=== PATIENT | male | born 1965 | race Asian ===

== ENCOUNTER 2017-12-13 13:33 | Outpatient (CLI) | payer OTHER ==
[~2017-12-13 13:33] MED LIST: GADOBUTROL 7.5 MMOL/7.5 ML VIAL ONE
[2017-12-13] MEDS ORDERED: GADOBUTROL 7.5 MMOL/7.5 ML VIAL IVP ONE (14:38)
--- NOTE | 2017-12-15 07:57 | MRI Report ---
EXAM: MRI CERVICAL SPINE WITHOUT AND WITH CONTRAST EXAM DATE: 12/13/2017 03:00 PM. CLINICAL HISTORY: Left-sided upper and lower extremity numbness and tingling. COMPARISON: 01/15/2008. TECHNIQUE: Multiplanar, multisequence T1-weighted and fluid-sensitive sequences of the cervical spine before and after administration of intravenous contrast. Other: None. IV contrast: 7.5 mL Gadavist. FINDINGS: Neurologic Structures: The visualized posterior fossa structures are unremarkable. No signal abnormal ity in the visualized spinal cord. Alignment: No scoliosis or spondylolisthesis. Bone Marrow: No gross fractures or bone lesions. No marrow edema or abnormal enhancement. Interspace Levels/Facets: All visualized intervertebral disks are desiccated. C1-c2: Unremarkable. C2-C3: Unremarkable. C3-C4: A mild posterior disk/osteophyte complex results in minimal spinal canal and mild bilateral fo raminal narrowing as before. C4-C5: A mild posterior disk/osteophyte complex results in moderate spinal canal and bilateral forami nal narrowing. The spinal canal narrowing has worsened and there is indentation on the anterior cord. C5-C6: A mild posterior disk/osteophyte complex, ligamentum flavum hypertrophy, and mild bilateral fa cet osteoarthritis cause moderate spinal canal and moderate bilateral foraminal narrowing. The spinal canal narrowing is worsened. C6-C7: A posterior disk/osteophyte complex results in mild spinal canal and moderate bilateral forami nal narrowing as before. C7-T1: Unremarkable. Spinal Canal: No enhancing lesions within the spinal canal. No epidural abscess. Musculature: Normal. No edema, enhancement, or fatty atrophy. Other: The paravertebral and prevertebral soft tissues are normal. IMPRESSION: 1. Mild bilateral foraminal narrowing at C3-C4 due to disk/osteophyte complex. 2. Moderate spinal canal and bilateral foraminal narrowing at C4-C5 due to disk/osteophyte complex. 3. Moderate spinal canal and bilateral foraminal narrowing at C5-C6 due to disk and posterior element degenerative changes. 4. Mild spinal canal and moderate bilateral foraminal narrowing at C6-C7 due to a disk/osteophyte com plex. [facility] Referring Provider Line: [phone] SITE ID: [id number]
== END 2017-12-13 13:34 | disposition home or self-care (01) ==
LOC: DI 13:33
PROVIDERS: ATTEND Nurse Practitioner Adult Health
DX: M47.892 Other spondylosis, cervical region (principal); M50.31 Other cervical disc degeneration, high cervical region
CPT/HCPCS: 72156; A9585

== ENCOUNTER 2018-01-17 14:43 | Outpatient (CLI) | payer OTHER ==
--- NOTE | 2018-01-18 04:01 | MRI Report ---
EXAM: MRI THORACIC SPINE WITHOUT CONTRAST EXAM DATE: 01/17/2018 04:39 PM. CLINICAL HISTORY: Low back pain, thoracic spine pain. COMPARISONS: None. TECHNIQUE: Multiplanar, multisequence T1-weighted and fluid-sensitive sequences of the thoracic spine from C7 to L1 without contrast. Other: None. FINDINGS: Spinal Cord: No signal abnormality in the visualized spinal cord. Alignment: There is no spondylolisthesis. Bone Marrow: No gross fractures or bone lesion. No bone marrow edema. Disk Levels/Facets: C7-T1: Unremarkable. T1-T2: Unremarkable. T2-T3: Unremarkable. T3-T4: Unremarkable. T4-T5: Unremarkable. T5-T6: Unremarkable. T6-T7: Unremarkable. T7-T8: Unremarkable. T8-T9: Unremarkable. T9-T10: Unremarkable. T10-T11: Unremarkable. T11-T12: Unremarkable. T12-L1: Unremarkable. Musculature: Normal. No edema or fatty atrophy. Other: The visualized lungs, mediastinum, and abdominal cavity are unremarkable. IMPRESSION: Unremarkable thoracic spine MRI. [facility] Referring Provider Line: [phone] SITE ID: [id number]
--- NOTE | 2018-01-18 04:04 | MRI Report ---
EXAM: MRI LUMBAR SPINE WITHOUT CONTRAST EXAM DATE: 01/17/2018 01:15 PM. CLINICAL HISTORY: Low back pain, thoracic spine pain. COMPARISON: None. TECHNIQUE: Multiplanar, multisequence T1-weighted and fluid-sensitive sequences of the lumbar spine f rom T12 to S1 without contrast. Other: None. FINDINGS: Spinal Cord: The conus terminates at L1-L2. The conus medullaris and cauda equina are unremarkable. Alignment: There is no spondylolisthesis. Bone Marrow: Five [id number] lumbar vertebral bodies are assumed. Small osseous hemangiomas are present in the L3 and L4 vertebral bodies, benign findings. No abnormal bone marrow edema is identifi ed. Disk Levels/Facets: T12-L1: Unremarkable. L1-L2: Unremarkable. L2-L3: Unremarkable. L3-L4: A small central protrusion and annular fissure is present with ligamentum flavum infolding res ulting in mild spinal canal stenosis. The foramina are patent. L4-L5: Unremarkable. L5-S1: Unremarkable. Musculature: Normal. No edema or fatty atrophy. Other: The partially visualized retroperitoneum is unremarkable. IMPRESSION: 1. Normal conus medullaris and cauda equina. 2. Mild protrusion and annular fissure with ligamentum flavum infolding result in mild spinal canal s tenosis at L3-L4. 3. No foraminal narrowing or bone marrow edema is identified. Comment: The following findings are so common in adults without low back pain that while we report th eir presence, they must be interpreted with caution and in the context of the clinical situation. (Re rome De La Torrek et al, Spine 2001) Prevalence of findings in patients without low back pain: Disk degeneration (any evidence): 92% Disk desiccation/T2 signal loss: 83% Disk height loss: 56% Disk bulge: 64% Disk protrusion: 32% Annular tear/high intensity zone: 38% [facility] Referring Provider Line: [phone] SITE ID: [id number]
== END 2018-01-17 14:44 | disposition home or self-care (01) ==
LOC: DI 14:43
PROVIDERS: ATTEND Nurse Practitioner Adult Health
DX: M51.26 Other intervertebral disc displacement, lumbar region (principal)
CPT/HCPCS: 72146; 72148

== ENCOUNTER 2019-02-18 08:35 | Outpatient (CLI) | payer OTHER ==
[2019-02-18] MEDS ORDERED: REGADENOSON 0.4 MG/5 ML SYRINGE IVP ONE ×2 (09:48→11:06)
[2019-02-18] MEDS ORDERED: AMINOPHYLLINE 250 MG/10 ML VIAL ONE (10:29)
--- NOTE | 2019-02-18 12:01 | CARDIAC PROCEDURE NOTE ---
DATE OF SERVICE: 02/18/2019 Physician: Dedra Olvera MD, [facility] INDICATIONS: Chest pain. CARDIAC RISK FACTORS: Male gender, hypertension, family history of heart disease. PROCEDURE: After signing informed consent, the patient underwent a Lexiscan pharmaceutical stress test with nuclear Myocardial perfusion imaging. RESTING HEART RATE: 70. PEAK HEART RATE: 96. RESTING BLOOD PRESSURE: 132/92. PEAK BLOOD PRESSURE: 158/75. Lexiscan was infused per protocol. The patient developed mild "heaviness of breathing." He did not have his typical chest pain. Oxygen saturation was 99% on room air at this point. His symptom subsided spontaneously after 2-3 minutes. RESTING EKG: Normal sinus rhythm, biphasic T-wave in lead III only. EKG AT PEAK: No new ST or T-wave changes by EKG criteria on this pharmaceutical stress test. SUMMARY 1. No ischemic changes by EKG criteria on this pharmaceutical stress test. 2. Nuclear images reported separately. TD: 02/18/2019 11:56 GEOVANNI
--- NOTE | 2019-02-18 16:09 | Nuclear Medicine Report ---
Reason: CHEST PAIN Procedure Date: 02/18/2019 Accession Number: [id number] / [id number] Procedure: NM - Myocardial Perfusion STR/RST CPT Code: FULL RESULT: EXAM: SINGLE-ISOTOPE PHARMACOLOGICAL STRESS TEST WITH REGADENOSON. SINGLE-ISOTOPE AND ONE-DAY REST/STRESS MYOCARDIAL PERFUSION SCANS WITH TOMOGRAPHIC IMAGING, QUANTITATIVE ANALYSIS, WALL MOTION ANALYSIS AND CALCULATION OF EJECTION FRACTION. EXAM DATE: 02/18/2019 03:27 PM. CLINICAL HISTORY: CHEST PAIN. COMPARISON: None available. TECHNIQUE: After the intravenous administration of 10.6 mCi of Tc-99m sestamibi, a rest myocardial perfusion scan was done with tomography. Motion correction was applied when appropriate. After an appropriate delay, pharmacological stress was performed with the infusion of 0.4 mg regadenoson per protocol. According to protocol, 44.1 mCi of Tc-99m sestamibi was injected for stress myocardial perfusion scan. Motion correction was applied when appropriate. Gated tomographic images were obtained for wall motion analysis and computation of left ventricular ejection fraction. FINDINGS: On visual analysis, no fixed or reversible perfusion defects are evident. Computer analysis. Summed stress score 7 Summed rest score 3 Summed difference score 4 Wall motion analysis demonstrates no focal wall motion abnormality. The left ventricular end-diastolic volume is 63 cc. The left ventricular end-systolic volume is 16 cc. The left ventricular ejection fraction is calculated to be 75%. IMPRESSION: 1. On visual analysis, no convincing significant fixed or reversible perfusion defects. 2. Left ventricular ejection fraction of 75%. 3. Normal segmental and global wall motion. 4. Normal left ventricular cavity size, no change with stress. 5. Based on computer analysis, mildly abnormal study with mild ischemia. Please correlate findings with stress ECG tracings and procedure notes. [facility]
== END 2019-02-18 08:36 | disposition home or self-care (01) ==
LOC: DI 08:35
PROVIDERS: ATTEND Nurse Practitioner Adult Health
DX: R07.9 Chest pain, unspecified (principal); R20.0 Anesthesia of skin; I10 Essential (primary) hypertension; M54.5 Low back pain; M54.6 Pain in thoracic spine; Z82.49 Family history of ischemic heart disease and other diseases of the circulatory system
CPT/HCPCS: 78452; 93016; 93017; 93018; A9500; J2785

== ENCOUNTER 2019-03-03 14:36 | Outpatient (CLI) | payer OTHER ==
[2019-03-03] MEDS ORDERED: IOVERSOL 320 100 ML VIAL IVP ONE (14:58)
--- NOTE | 2019-03-04 08:24 | Ultrasound Report ---
Reason: RT UPPER QAUDRANT PAIN Procedure Date: 03/03/2019 Accession Number: [id number] / [id number] Procedure: US - Abdomen Complete CPT Code: FULL RESULT: EXAM: ABDOMEN ULTRASOUND EXAM DATE: 03/03/2019 03:30 PM. CLINICAL HISTORY: Right upper quadrant pain. COMPARISON: IVP 03/03/2019 3:53 PM, 03/03/2019 3:42 PM. TECHNIQUE: Real-time scanning was performed with static images obtained. FINDINGS: Liver: Liver parenchyma is heterogeneous and mildly hyperechoic. No discrete liver masses or intrahepatic bile duct dilation. However, evaluation for masses is limited secondary to the echogenicity. 16.2 cm. Main portal vein flow: Hepatopetal. Gallbladder: Normal. No stones, wall thickening, or sonographic Palomo's sign. Biliary System: Common bile duct measures 3.2 mm. No intrahepatic or extrahepatic ductal dilatation. Pancreas: Not well-seen due to bowel gas and fatty liver. Kidneys: Right: 9.4 cm longitudinally. No hydronephrosis or contour deforming mass. Mid right renal echogenic focus measuring 0.8 cm most compatible with a stone. Left: 10.2 cm longitudinally. No contour-deforming mass, stones, or hydronephrosis. 1.1 x 0.8 x 1.3 cm simple mid left renal cyst. Spleen: 7.6 cm. Normal in size and echotexture. Aorta and Inferior Vena Cava: Unremarkable. Other: None. IMPRESSION: 1. Mildly echogenic fatty liver. No mass or intrahepatic bile duct dilation. 2. Normal gallbladder and common bile duct. 3. Pancreas largely obscured by bowel gas. 4. 0.8 cm nonobstructing mid right renal stone. No hydronephrosis. 1.3 cm simple mid left renal cyst. [facility]
== END 2019-03-03 14:37 | disposition home or self-care (01) ==
LOC: DI 14:36
PROVIDERS: ATTEND Nurse Practitioner Adult Health
DX: K76.0 Fatty (change of) liver, not elsewhere classified (principal); N20.0 Calculus of kidney; N28.1 Cyst of kidney, acquired
CPT/HCPCS: 76700

== ENCOUNTER 2019-03-03 14:38 | Outpatient (CLI) | payer OTHER ==
[~2019-03-03 14:38] MED LIST changes: -GADOBUTROL 7.5 MMOL/7.5 ML VIAL ONE; +IOVERSOL 320 100 ML VIAL IVP ONE
[2019-03-03] MEDS ORDERED: IOVERSOL 320 100 ML VIAL IVP ONE (16:02)
--- NOTE | 2019-03-04 05:12 | CT Report ---
Reason: CALCULUS OF KIDNEY Procedure Date: 03/03/2019 Accession Number: [id number] / [id number] Procedure: CT - IVP CPT Code: FULL RESULT: EXAM: CT ABDOMEN AND PELVIS WITHOUT AND WITH CONTRAST (CT IVP) EXAM DATE: 03/03/2019 04:19 PM. CLINICAL HISTORY: Calculus of kidney. COMPARISONS: 03/03/2019 2:43 PM. TECHNIQUE: Routine helical imaging was performed through the kidneys, ureters and bladder in the precontrast, postcontrast and delayed phase. IV Contrast: Yes. Reconstructions: Coronal and sagittal. In accordance with CT protocol optimization, one or more of the following dose reduction techniques were utilized for this exam: automated exposure control, adjustment of mA and/or KV based on patient size, or use of iterative reconstructive technique. FINDINGS: Lung Bases: Unremarkable. Right Kidney/Ureter: Nonobstructing 4 x 4 mm right renal stone. No ureteral stones, hydronephrosis, or solid-appearing masses. Left Kidney/Ureter: No stones, hydronephrosis, or solid-appearing masses. Couple of small cysts measuring up to 1.5 cm. Other Abdominal Organs: The liver, spleen, pancreas, gallbladder, and adrenal glands are unremarkable. Peritoneal Cavity/Bowel: No free fluid, free air or adenopathy. No masses. Bowel loops appear unremarkable with note of mild colonic diverticulosis. Pelvic Organs: Moderately enlarged prostate with median lobe hypertrophy indenting into the inferior aspect of the bladder. The bladder otherwise appears unremarkable. Vasculature: Normal. Bones: No significant abnormality. Other: None. IMPRESSION: 1. Small, 4 mm nonobstructing right renal stone. 2. No ureteral stone or evidence of obstructive uropathy. 3. No solid-appearing renal or urothelial lesion seen. 4. Enlarged prostate with median lobe hypertrophy indenting into the inferior aspect of the bladder. 5. Mild colonic diverticulosis. [facility]
== END 2019-03-03 14:39 | disposition home or self-care (01) ==
LOC: DI 14:38
PROVIDERS: ATTEND Nurse Practitioner Adult Health
DX: N20.0 Calculus of kidney (principal); N40.0 Benign prostatic hyperplasia without lower urinary tract symptoms; K57.30 Diverticulosis of large intestine without perforation or abscess without bleeding; K76.0 Fatty (change of) liver, not elsewhere classified; N28.1 Cyst of kidney, acquired
CPT/HCPCS: 74178; 76700; Q9967

== ENCOUNTER 2019-11-28 13:38 | Emergency (ER) | payer OTHER ==
[2019-11-28] MEDS ORDERED: HYDROmorphone 1 MG/ML CARPUJECT IM STA (13:52)
[2019-11-28] MEDS ORDERED: ONDANSETRON ODT 4 MG TABLET TL STA (13:52)
[2019-11-28] MEDS ORDERED: HYDROmorphone 1 MG/ML CARPUJECT IVP STA (13:53)
--- NOTE | 2019-11-28 13:54 | ED Physician Documentation ---
PD HPI UPPER EXT INJURY - Stated complaint Stated Complaint: LT ARM INJURY - Chief complaint Chief Complaint: Trauma Ext - History obtained from History obtained from: Patient (54-year-old gentleman fell off a ladder while working at home today and is isolated left wrist injury. No head or neck injury. No loss of consciousness. Pain is severe in the left wrist.) Review of Systems Ten Systems: 10 systems reviewed and negative Constitutional: denies: Fever, Chills GI: denies: Abdominal Pain, Nausea, Vomiting PD PAST MEDICAL HISTORY - Past Medical History Cardiovascular: None Respiratory: None Endocrine/Autoimmune: None Psych: Post traumatic stress disorder Musculoskeletal: None - Present Medications Home Medications: Ambulatory Orders Medication Instructions Recorded Confirmed Oxycodone HCl/Acetaminophen 1 - 2 each PO Q6H PRN #20 tablet 11/28/19 [Percocet 5-325 mg Tablet] - Allergies Allergies/Adverse Reactions: Allergies Allergy/AdvReac Type Severity Reaction Status Date / Time No Known Drug Allergies Allergy Verified 11/28/19 13:46 PD ED PE NORMAL - Vitals Vital signs reviewed: Yes - General General: Alert and oriented X 3, Other (He appears uncomfortable, gait is normal) - HEENT HEENT: PERRL, EOMI - Neck Neck: Supple, no meningeal sign, No bony TTP - Cardiac Cardiac: RRR, No murmur - Respiratory Respiratory: No respiratory distress, Clear bilaterally - Abdomen Abdomen: Non tender - Back Back: No CVA TTP, No spinal TTP - Derm Derm: Normal color, Warm and dry - Extremities Extremities: Other (There is an obvious dinner fork type deformity of the left wrist with normal neurovascular function distally, humerus and elbow are nontender.) - Neuro Neuro: Alert and oriented X 3, Normal speech Results - Vitals Vitals: Vital Signs - 24 hr 11/28/19 11/28/19 11/28/19 13:46 14:24 14:31 Temperature 36.8 C Heart Rate 117 H 110 H 107 H Respiratory 20 23 16 Rate Blood Pressure 169/92 H 162/104 H 145/101 H O2 Saturation 98 98 100 11/28/19 11/28/19 11/28/19 14:37 14:40 14:43 Temperature Heart Rate 101 H 101 H 70 Respiratory 17 20 16 Rate Blood Pressure 151/94 H 151/97 H O2 Saturation 100 99 Oxygen O2 Source Room air Procedures - Splint (location) LUE Splint applied by: Physician, Tech Type of splint: Fiberglass, Long arm, Sugar tong Other: Patient tolerated well, No complications, Neurovascular intact, Sling provided - Reduction Body part reduced: Left, Forearm Fracture or dislocation: Fracture dislocation Anesthesia: Conscious sedation Reduction aftercare: Xray confirms reduction (better, not perfect, but good enough pending surgery), Alignment improved, Splint applied, Sling, Patient tolerated well - Procedural sedation Sedation prep: Informed consent, AHA 1 - healthy, IV O2 monitor, ET CO2 monitor, RT present Sedation medications: propofol (100mg then 50mg IVP, total 150mg) Patient status during sedation: Responds to tactile, Vitals remained stable, Maintained airway Sedation recovery: Recovered uneventfully, Slow recovery Time in sedation (Minutes): 10 PD MEDICAL DECISION MAKING - ED course ED course: Case discussed by phone with Dr. Morrison at approximately 2:10 PM, recommends close reduction and splinting with sedation and he will follow-up in the clinic tomorrow for likely OR date on Friday. Departure - Departure Disposition: 01 Home, Self Care Clinical Impression: Forearm fractures, both bones, closed Qualifiers: Encounter type: initial encounter Laterality: left Qualified Code(s): S52.92XA - Unspecified fracture of left forearm, initial encounter for closed fracture Condition: Good Record reviewed to determine appropriate education?: Yes Instructions: ED Fx Forearm Radius Ulna Redu Requ Follow-Up: Kaden Morrison MD [Provider Admit Priv/Credential] - Tomorrow Prescriptions: Oxycodone HCl/Acetaminophen [Percocet 5-325 mg Tablet] 1 - 2 each PO Q6H PRN #20 tablet PRN Reason: pain Comments: Dr. Morrison's office should be following up by calling you tomorrow, call them if you have not heard from them by mid afternoon. The plan he told me was to slide you in the clinic tomorrow for a preop visit and then likely surgery on Friday. Forms: Activity restrictions
[2019-11-28] MEDS ORDERED: PROPOFOL 200 MG/20 ML VIAL IVP STA ×2 (14:13→14:38)
[2019-11-28] MEDS ORDERED: KETOROLAC 30 MG/ML VIAL IVP STA (14:50)
--- NOTE | 2019-11-28 14:51 | XRAY Report ---
Reason: wrist inj Procedure Date: 11/28/2019 Accession Number: [id number] / [id number] Procedure: XR - Wrist 3 View LT CPT Code: Final Report FULL RESULT: EXAM: LEFT WRIST RADIOGRAPHY EXAM DATE: 11/28/2019 02:07 PM. CLINICAL HISTORY: Fall off ladder. Wrist pain. COMPARISON: None. TECHNIQUE: 3 views. FINDINGS: Bones: Completely displaced comminuted distal third shaft left radius fracture with comminution with a small segmental fragment. There is lateral displacement of the distal fracture fragment and complete volar displacement of the distal fracture fragment with overlap extending over approximately 2.8 cm. There is mild lateral angulation. Completely displaced distal shaft left ulnar fracture is seen with dorsal and radial displacement of the distal fracture fragment and overlap of the fragments approximately 1.8 cm. There is lateral angulation. Joints: No dislocation of the left wrist. Soft Tissues: Soft tissue swelling. IMPRESSION: 1. Completely displaced distal left radius and ulna fractures. [facility]
--- NOTE | 2019-11-28 15:25 | XRAY Report ---
Reason: post reduction Procedure Date: 11/28/2019 Accession Number: [id number] / [id number] Procedure: XR - Forearm RT CPT Code: Final Report FULL RESULT: EXAM: RIGHT FOREARM RADIOGRAPHY EXAM DATE: 11/28/2019 02:52 PM. CLINICAL HISTORY: Status post reduction of distal radial and ulnar fractures. COMPARISON: WRIST 3 VIEW LT 11/28/2019 1:50 PM. TECHNIQUE: 2 views. FINDINGS: An external cast has been placed at the forearm and wrist. The cast obscures the bony details. There are displaced distal radial and ulnar fractures. The distal ulnar fracture fragment is displaced by approximately 8 mm radially and 4 mm dorsally. The distal radial fracture fragment is displaced radially by approximately 4 mm and volarly by approximately 8 mm. Soft Tissues: Soft tissue swelling of the forearm. IMPRESSION: 1. Displaced distal radial and ulnar fractures as described above. 2. Soft tissue swelling. [facility]
[2019-11-28 16:06] VITALS: BP 154/85
== END 2019-11-28 16:08 | disposition home or self-care (01) ==
LOC: ED 13:38
DX: S52.502A Unspecified fracture of the lower end of left radius, initial encounter for closed fracture (principal); S52.602A Unspecified fracture of lower end of left ulna, initial encounter for closed fracture; W11.XXXA Fall on and from ladder, initial encounter; Y92.009 Unspecified place in unspecified non-institutional (private) residence as the place of occurrence of the external cause
CPT/HCPCS: 25605; 73090; 73110; 96374; 96375; 99152; 99283; 99284; J1170; Q0162; 25565; 94770

== ENCOUNTER 2019-12-01 08:15 | Day surgery (SDC) | payer OTHER ==
[~2019-12-01 08:15] MED LIST changes: +CEFAZOLIN SODIUM IN 0.9 % NACL 2 GM/100 ML BAG IV ONE; -IOVERSOL 320 100 ML VIAL IVP ONE
[2019-12-01] MEDS ORDERED: LACTATED RINGERS 1,000 ML IV ONE ×2 (08:28→11:45)
[2019-12-01] MEDS ORDERED: LIDO GARGLE 30 ML BOTTLE ONE (08:39)
[2019-12-01 09:06] LABS: BASOPHILS # (AUTO) 0.1 10^3/uL (0.0-0.1); BASOPHILS % (AUTO) 1.4 %; EOSINOPHILS # (AUTO) 0.2 10^3/uL (0.0-0.7); EOSINOPHILS % (AUTO) 3.5 %; HGB - HEMOGLOBIN 11.3 g/dL (14.0-18.0); LYMPHOCYTES # (AUTO) 1.4 10^3/uL (1.5-3.5); LYMPHOCYTES % (AUTO) 25.1 %; MEAN CORPUSCULAR HEMOGLOBIN 24.6 pg (27.0-31.0); MEAN CORPUSCULAR HGB CONC 31.7 g/dL (32.0-36.0); MEAN CORPUSCULAR VOLUME 77.6 fL (80.0-94.0); MEAN PLATELET VOLUME 9.7 fL (7.4-11.4); MONOCYTES # (AUTO) 0.5 10^3/uL (0.0-1.0); MONOCYTES % (AUTO) 8.8 %; NEUTROPHILS # (AUTO) 3.4 10^3/uL (1.5-6.6); NEUTROPHILS % (AUTO) 60.8 %; PLT - PLATELET COUNT 310 10^3/uL (130-450); RED BLOOD COUNT 4.59 10^6/uL (4.70-6.10); RED CELL DISTRIBUTION WIDTH 16.5 % (12.0-15.0); WHITE BLOOD COUNT 5.7 x10^3/uL (4.8-10.8)
[2019-12-01 09:16] LABS: CALCIUM 8.9 mg/dL (8.5-10.3); CREATININE 0.8 mg/dL (0.6-1.2)
--- NOTE | 2019-12-01 10:25 | ANESTHESIA ---
Pre-Anesthesia VS, & Labs - Diagnosis Ulnar/radius fracture - Procedure ORIF radius/ulna Vital Signs: Temp Pulse Resp BP Pulse Ox 36.7 C 90 16 132/92 H 98 12/01/19 08:28 12/01/19 08:28 12/01/19 08:28 12/01/19 08:28 12/01/19 08:28 Height 5 ft 6 in Weight (kg) 73.4 kg Body Mass Index 25.8 - NPO >8 hours - Lab Results Current Lab Results: Laboratory Tests 12/01/19 08:49: WBC 5.7, RBC 4.59 L, Hgb 11.3 L, Hct 35.6 L, MCV 77.6 L, MCH 24.6 L, MCHC 31.7 L, RDW 16.5 H, Plt Count 310, MPV 9.7, Neut # (Auto) 3.4, Lymph # (Auto) 1.4 L, [place] # (Auto) 0.5, Eos # (Auto) 0.2, Baso # (Auto) 0.1, Absolute Nucleated RBC 0.00, Nucleated RBC % 0.0 12/01/19 08:49: Sodium 138, Potassium 3.5, Chloride 104, Carbon Dioxide 24, Anion Gap 10.0, BUN 11, Creatinine 0.8, Estimated GFR (MDRD) 100, Glucose 118 H, Calcium 8.9 Fish Bones: 12/01/19 08:49 12/01/19 08:49 Home Medications and Allergies Allergies/Adverse Reactions: Allergies Allergy/AdvReac Type Severity Reaction Status Date / Time No Known Drug Allergies Allergy Verified 11/28/19 13:46 Anes History & Medical History - Anesthetic History Anesthesia Complications: reports: No previous complications Family history of Anesthesia Complications: Denies Family history of Malignant Hyperthermia: Denies - Medical History Cardiovascular: reports: None Pulmonary: reports: None Gastrointestinal: reports: None Urinary: reports: None Neuro: reports: None Musculoskeletal: reports: None Endocrine/Autoimmune: reports: None Blood Disorders: reports: None Skin: reports: None Smoking Status: Never smoker Psychosocial: reports: No issues indicated Exam General: Alert Dental: WNL Mouth Opening: Greater than 4 Fingerbreadths Neck Mobility: Normal Mallampati classification: I Thyromental Distance: greater than 6 cm Respiratory: Lungs clear Cardiovascular: Regular rate Neurological: Normal speech Mental/Cognitive Status: Alert/Oriented X3 Cognitive Status: Within normal limits Plan Anesthesia Type: General Consent for Procedure(s) Verified and Reviewed: Yes Code Status: Attempt Resuscitation ASA classification: 1-Healthy patient Is this case an emergency?: No
[2019-12-01] MEDS ORDERED: BUPIVACAINE 0.25% PF 30 ML VIAL ONE (10:46)
[2019-12-01] MEDS ORDERED: NEOSTIGMINE 1 MG/1 ML 10 ML MDV IVP ONE (10:52)
[2019-12-01] MEDS ORDERED: PROPOFOL 200 MG/20 ML VIAL IVP ONE (10:52)
[2019-12-01] MEDS ORDERED: PHENYLEPHRINE 10 MG/ML VIAL IV ONE (10:52)
[2019-12-01] MEDS ORDERED: ACETAMINOPHEN 1,000 MG/100 ML 100 ML IV ONE (10:52)
[2019-12-01] MEDS ORDERED: MIDAZOLAM 2 MG/2 ML VIAL IVP ONE (10:52)
[2019-12-01] MEDS ORDERED: DEXAMETHASONE 4 MG/ML VIAL IVP ONE (10:52)
[2019-12-01] MEDS ORDERED: GLYCOPYRROLATE 1 MG/5 ML VIAL IVP ONE (10:52)
[2019-12-01] MEDS ORDERED: ONDANSETRON 4 MG/2 ML VIAL IVP ONE (10:52)
[2019-12-01] MEDS ORDERED: fentaNYL 100 MCG/2 ML VIAL IVP ONE (10:52)
[2019-12-01] MEDS ORDERED: ROCURONIUM 50 MG/5 ML VIAL IVP ONE (10:52)
[2019-12-01] MEDS ORDERED: BUPIVACAINE 0.25% PF 30 ML VIAL SUBQ ONE ×2 (11:44)
[2019-12-01] MEDS ORDERED: ONDANSETRON 4 MG/2 ML VIAL IVP PRN (14:08)
--- NOTE | 2019-12-01 14:08 | IMMEDIATE POSTOPERATIVE NOTE ---
Immediate Postoperative Note - Procedure Note Procedure Date: 12/01/19 Pre-Op Diagnosis: left both bone forearm fracture Procedure: orif bbfa fx left Post-Op Diagnosis: same Primary Surgeon: Dory Morrison MD Fusing Furnace Loader: none Anesthesia Type: General ET tube, Local, Regional block Findings: as above Complications: No complications Estimated Blood Loss (in cc): 50 Drains, Catheters, Devices: none Plan of Care: pt tolerated procedure well. instrument and sponge count correct. xfer to rr in stable condition will follow left bbfa fx orif protocol: NWB LUE, may move digits. sling/elevation/ice as directed
[2019-12-01] MEDS: fentaNYL 100 MCG/2 ML VIAL ONE ×2 (14:13→14:18)
[2019-12-01] MEDS: HYDROmorphone 1 MG/ML CARPUJECT ONE ×4 (14:23→14:49)
[2019-12-01] MEDS ORDERED: HYDROmorphone 1 MG/ML CARPUJECT ONE (14:39)
[2019-12-01] MEDS ORDERED: oxyCODONE 5 MG TABLET ONE ×2 (15:14→15:30)
[2019-12-01] MEDS: oxyCODONE 5 MG TABLET PO PRN ×2 (15:15→15:32)
--- NOTE | 2019-12-01 15:23 | XRAY Report ---
Reason: fx forearm Procedure Date: 12/01/2019 Accession Number: [id number] / [id number] Procedure: FL - OR C-Arm Procedure CPT Code: Final Report FULL RESULT: EXAM: FLUOROSCOPIC GUIDANCE EXAM DATE: 12/01/2019 03:06 PM. CLINICAL HISTORY: Fracture forearm. COMPARISON: None. FINDINGS: 3 fluoroscopic saved images demonstrate plate and screw constructs securing distal radius and ulna fractures. IMPRESSION: Fluoroscopic guidance provided for operative fixation of forearm fracture. Total fluoroscopy time: 23 seconds. Number of images: 3. [facility]
[2019-12-01 15:48] VITALS: BP 150/95
--- NOTE | 2019-12-01 23:58 | OPERATIVE REPORT ---
DATE OF SERVICE: 12/01/2019 Physician: Kaden Morrison MD SURGEON: Kaden Morrison MD HARVEST WORKER FRUIT: None. ANESTHESIA PROVIDER: Xavier Rojo CRNA. ANESTHESIA TYPE: Left upper extremity regional block under ultrasound guidance, as well as 15 mL of 0.25% Marcaine with epinephrine local as well as general endotracheal anesthesia. ESTIMATED BLOOD LOSS: 50 mL FLUIDS: 800 mL lactated Ringer's. TOURNIQUET TIME: 120 minutes at 250 mmHg. COMPRESSION DEVICE: Bilateral calf SCD boots. PREOPERATIVE ANTIBIOTICS: Weight-based IV Ancef. PREOPERATIVE DIAGNOSIS: Left both-bone forearm fracture. POSTOPERATIVE DIAGNOSIS: Left both-bone forearm fracture. PROCEDURES PERFORMED 1. Left open reduction and internal fixation of radius. 2. Left open reduction and internal fixation ulna diaphysis. 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 He is indicated for operative treatment given the fracture of necessity. We discussed this in the clinic. We talked ab out risks, benefits, and alternatives and reviewed these in the clinic, reflected in the clinic docum entation. These risks, benefits and alternatives again highlighted with the patient in the preoperative care un it. Potential short and long-term problems and even potential permanent problems with his injury and surgery are reviewed. He verbalized understanding of the above as well as previous discussion, and verbalized wish to proceed with operative treatment. Informed consent is given. PROCEDURE IN DETAIL: On 12/01/2019, patient is identified in the preoperative care unit. Left upper extremity is identified and signed as operative site, patient received preoperative weight-based IV antibiotics and brought to the operating room. A short-acting regional block performed under ultraso und guidance by anesthesia team. Patient had general endotracheal anesthesia. Patient's left upper extremity then had a well-padded tourniquet placed high on the left arm, taking care to avoid encumbr ance of the axilla. At this point, left upper extremity appropriately shaved and then pre-scrubbed w ith Hibiclens solution, followed by alcohol and then prepped and draped with ChloraPrep solution unde r sterile conditions. At this point, surgical pause identifies the left forearm as the operative site. Exsanguination with Esmarch is performed. Tourniquet is inflated. At this point, fracture site of the radius is identi fied. An incision is made volarly with a volar approach, taking care to achieve hemostasis. Spreadi ng dissection carried out, interval identified and gentle retraction with [employer] is brought radial ly and ultimately then down onto the radius, elevating tissues such that the fracture site can be ruth ntified. The fracture site is cleared of hematoma and periosteum, and retractors are placed directly on bone, radially and ulnarly. On the volar aspect of the radius an elevator is used to elevate sof t tissues proximally and distally just enough for the 6-hole plate. At this point, fracture is reduc ed using lion jaw reduction clamps and then a 6-hole LC-DC plate is prebent with the anticipation of using AO technique, and then this is held in place with a Verbrugge clamps. Fluoroscopic image confi robin acceptable plate position and then AO compression technique is used to compress across the fractu re site, which achieves near anatomic reduction and flattening of the plate. At this point, after us ing the near and far holes, the 2 middle holes, one on each side had a locking screw placed. All scr ews are tightened. The wound is copiously irrigated and then ultimately skin is closed using 0 Vicry l, 2-0 Vicryl interrupted nylon suture with hemostasis and irrigation at every level. Care is taken for careful dissection with spreading technique and to avoid over exuberant retraction of neurovascul ar structures. At this point, attention is directed towards subcutaneous border of the ulna centered over the fractu re site, where an incision is made between the volar and dorsal compartments. At this point, given t he soft tissue coverage, the volar side is selected, though the fracture site is known to be quite di stal and is not felt that a complete 3 holes could be beyond the fracture distally, nor is it felt th at it would be appropriate to put an LC-DC plate there, given the thickness of the plate and the thin ness of his soft tissue. As such, 1/3 tubular plate is selected and the fracture is reduced essentia lly anatomically and held and then the plate is placed such that there are 2 holes distally and proxi chapis with the understanding that this is done deliberately to avoid soft tissue injury distally. At this point, the screw holes are drilled and then filled with screws, which are just bicortical. The more proximal one are visualized and noted to be out of significant soft tissue structures. At this point, the ulna is noted to be nearly anatomically reduced as well. Final fluoroscopic images confi rm appropriate radial bow and appropriate reduction in all planes with appropriate hardware position. The ulnar wound is irrigated. Hemostasis is achieved. Muscle fascia closed and then skin is closed with 0 Vicryl, 2-0 Vicryl interrupted nylon suture. Skin is washed and dried. Xeroform dressing is applied on all wounds. Dry sterile dressing. Patient is placed in a well-padded sugar-tong splint. Patient is placed in a sling. Patient tolerated the procedure well. Instrument and sponge counts are correct. Patient is transfer red to recovery room in stable condition. Patient will be nonweightbearing on the left upper extremity. He would be encouraged to move his dig its. He will be in a sling. He would ice and elevate as directed. He will be on perioperative anti biotics for 24 hours. He is encouraged to take narcotics as necessary and vroz-weu-yugfhzu stool sof tener while using narcotics. He will follow up in 10-14 days or sooner should problems or questions arise. Patient's not available for frhh-fc-fjyl discussion, though instructions reviewed again with edy perea and then with patient's prior to discharge. TD: 12/01/2019 14:46
== END 2019-12-01 08:16 | disposition home or self-care (01) ==
LOC: SDS 08:15
PROVIDERS: ATTEND Orthopaedic Surgery Sports Medicine
PROC: 0PSL04Z Reposition Left Ulna with Internal Fixation Device, Open Approach (ICD-10-PCS; 2019-12-01)
PROC: 0PSJ04Z Reposition Left Radius with Internal Fixation Device, Open Approach (ICD-10-PCS; principal; 2019-12-01 10:00)
DX: S52.302A Unspecified fracture of shaft of left radius, initial encounter for closed fracture (principal); S52.202A Unspecified fracture of shaft of left ulna, initial encounter for closed fracture
CPT/HCPCS: 25575; 80048; 85025; A9270; C1713; J0131; J0690; J1170; J7120

== ENCOUNTER 2020-01-25 07:23 | Emergency (ER) | payer OTHER ==
[2020-01-25 07:53] LABS: BILIRUBIN,URINE NEGATIVE (NEGATIVE); GLUCOSE, URINE (UA) NEGATIVE (NEGATIVE); KETONES,URINE (UA) NEGATIVE (NEGATIVE); LEUKOCYTE ESTERASE, URINE NEGATIVE (NEGATIVE); NITRITE,URINE NEGATIVE (NEGATIVE); OCCULT BLOOD,URINE LARGE (NEGATIVE); PH,URINE 5.5 PH (5.0-7.5); PROTEIN,URINE NEGATIVE (NEGATIVE); UROBILINOGEN,URINE 0.2 (NORMAL) E.U./dL (NORMAL)
[2020-01-25 07:59] LABS: CLARITY,URINE CLEAR (CLEAR)
[2020-01-25 08:02] LABS: ALBUMIN 4.3 g/dL (3.2-5.5); ALBUMIN/GLOBULIN RATIO 1.2 (1.0-2.2); BILIRUBIN,TOTAL 0.7 mg/dL (0.2-1.0); CALCIUM 9.2 mg/dL (8.5-10.3); CREATININE 1.2 mg/dL (0.6-1.2)
[2020-01-25 08:06] LABS: BACTERIA,URINE Rare /HPF (None Seen); SQUAMOUS EPITHELIAL CELL,UR RARE Squamous (<= Few)
--- NOTE | 2020-01-25 08:07 | ED Physician Documentation ---
PD HPI ABD PAIN - Stated complaint Stated Complaint: R SIDE PX - Chief complaint Chief Complaint: Abd Pain - History obtained from History obtained from: Patient - History of Present Illness Timing - onset: Last night (few hours ago) Timing - duration: Hours (few) Timing - details: Abrupt onset, Still present Quality: Aching, Sharp, Pain Location: RLQ Radiation: Right flank Improved by: No: Eating, Vomiting, Position Worsened by: No: Eating, Moving, Breathing, Palpation Associated symptoms: Nausea. No: Fever, Vomiting, Diarrhea, Dysuria Similar symptoms before: Has not had sx before Recently seen: Not recently seen Review of Systems Constitutional: denies: Fever, Chills Nose: denies: Rhinorrhea / runny nose, Congestion Throat: denies: Sore throat Respiratory: denies: Dyspnea, Cough GI: reports: Abdominal Pain, Nausea. denies: Abdominal Swelling, Vomiting, Diarrhea Neurologic: denies: Focal weakness, Numbness PD PAST MEDICAL HISTORY - Past Medical History Cardiovascular: None Respiratory: None Neuro: None Endocrine/Autoimmune: None GI: None : None HEENT: None Psych: Anxiety, Post traumatic stress disorder Musculoskeletal: None Derm: None - Past Surgical History Past Surgical History: No - Present Medications Home Medications: Ambulatory Orders Medication Instructions Recorded Confirmed Oxycodone HCl/Acetaminophen 1 - 2 each PO Q6H PRN #20 tablet 11/28/19 12/01/19 [Percocet 5-325 mg Tablet] Naproxen 500 mg PO BID #20 tablet 01/25/20 Ondansetron Odt [Zofran] 4 mg TL Q6H PRN #10 tablet 01/25/20 Oxycodone HCl/Acetaminophen 1 - 2 each PO Q6H PRN #20 tablet 01/25/20 [Percocet 5-325 mg Tablet] Tamsulosin [Flomax] 0.4 mg PO DAILY #5 capsule 01/25/20 - Allergies Allergies/Adverse Reactions: Allergies Allergy/AdvReac Type Severity Reaction Status Date / Time No Known Drug Allergies Allergy Verified 01/25/20 07:40 - Social History Does the pt smoke?: No Smoking Status: Never smoker Does the pt drink ETOH?: No Does the pt have substance abuse?: No - Immunizations Immunizations are current?: Yes PD ED PE NORMAL - Vitals Vital signs reviewed: Yes - General General: Alert and oriented X 3, Well developed/nourished, Other (He appears very uncomfortable. He is pleasant and interacting calmly but he is grimacing and appears in pain.) - Neck Neck: Supple, no meningeal sign, No adenopathy - Cardiac Cardiac: RRR, No murmur - Respiratory Respiratory: Clear bilaterally - Abdomen Abdomen: Normal bowel sounds, Soft, Non tender, Non distended - Male Male : Deferred - Rectal Rectal: Deferred - Back Back: Other (Moderate right CVA tenderness.) - Derm Derm: Normal color, Warm and dry, No rash - Neuro Neuro: Alert and oriented X 3, No motor deficit, Normal speech Results - Vitals Vitals: Vital Signs - 24 hr 01/25/20 01/25/20 01/25/20 07:37 08:32 09:30 Temperature 36.8 C 36.7 C Heart Rate 93 73 75 Respiratory 24 16 16 Rate Blood Pressure 133/98 H 127/76 130/75 O2 Saturation 98 98 98 Oxygen O2 Source Room air - Labs Labs: Laboratory Tests 01/25/20 01/25/20 01/25/20 07:45 07:45 07:45 WBC 4.9 RBC 5.05 Hgb 12.4 L Hct 39.2 L MCV 77.6 L MCH 24.6 L MCHC 31.6 L RDW 17.4 H Plt Count 265 MPV 10.2 Neut # (Auto) 2.6 Lymph # (Auto) 1.6 Bowie # (Auto) 0.4 Eos # (Auto) 0.2 Baso # (Auto) 0.1 Absolute Nucleated RBC 0.00 Nucleated RBC % 0.0 Sodium 138 Potassium 3.4 L Chloride 100 L Carbon Dioxide 27 Anion Gap 11.0 BUN 16 Creatinine 1.2 Estimated GFR (MDRD) 63 L Glucose 149 H Calcium 9.2 Total Bilirubin 0.7 AST 27 ALT 23 Alkaline Phosphatase 55 Total Protein 8.0 Albumin 4.3 Globulin 3.7 Albumin/Globulin Ratio 1.2 Lipase 36 Urine Color YELLOW Urine Clarity CLEAR Urine pH 5.5 Ur Specific [place] >=1.030 H Urine Protein NEGATIVE Urine Glucose (UA) NEGATIVE Urine Ketones NEGATIVE Urine Occult Blood LARGE H Urine Nitrite NEGATIVE Urine Bilirubin NEGATIVE Urine Urobilinogen 0.2 (NORMAL) Ur Leukocyte Esterase NEGATIVE Urine RBC 6-10 H Urine WBC 0-3 Ur Squamous Epith Cells RARE Squamous Urine Bacteria Rare Ur Microscopic Review INDICATED Urine Culture Comments NOT INDICATED - Rads (name of study) KUB CT Radiology: Prelim report reviewed (4 to 5 mm stone at the right mid ureter at the level of L4 with only mild obstruction. No other acute process), See rad report PD MEDICAL DECISION MAKING - ED course Complexity details: reviewed results, re-evaluated patient (He is considerably improved after IV medicines. He should be stable for attempting outpatient treatment.), considered differential, d/w patient Departure - Departure Disposition: 01 Home, Self Care Clinical Impression: Right sided abdominal pain, Ureterolithiasis Condition: Stable Record reviewed to determine appropriate education?: Yes Instructions: ED Stone Renal W Colic Follow-Up: Escobar Elizalde MD [Provider Admit Priv/Credential] - Prescriptions: Naproxen 500 mg PO BID #20 tablet Ondansetron Odt [Zofran] 4 mg TL Q6H PRN #10 tablet PRN Reason: Nausea / Vomiting Oxycodone HCl/Acetaminophen [Percocet 5-325 mg Tablet] 1 - 2 each PO Q6H PRN #20 tablet PRN Reason: pain Tamsulosin [Flomax] 0.4 mg PO DAILY #5 capsule Comments: Stay well-hydrated but you do not need to over hydrate. Use an anti- inflammatory such as naproxen twice daily for the next several days until improved. Ondansetron if needed for nausea. Tamsulosin tries to reduce ureteral spasms. It may have lightheadedness associated with it and so discontinue use of it if you are feeling too lightheaded with standing up etc. Add Tylenol or Percocet if needed for pains. The majority of stones of this size will pass within a couple of days. Return if worsening symptoms not controlled with prescription medicines. Follow-up with your primary care or urology if symptoms last more than several days to week. Discharge Date/Time: 01/25/20 09:38
[2020-01-25 08:08] LABS: BASOPHILS # (AUTO) 0.1 10^3/uL (0.0-0.1); BASOPHILS % (AUTO) 1.4 %; EOSINOPHILS # (AUTO) 0.2 10^3/uL (0.0-0.7); EOSINOPHILS % (AUTO) 4.3 %; HGB - HEMOGLOBIN 12.4 g/dL (14.0-18.0); LYMPHOCYTES # (AUTO) 1.6 10^3/uL (1.5-3.5); LYMPHOCYTES % (AUTO) 32.5 %; MEAN CORPUSCULAR HEMOGLOBIN 24.6 pg (27.0-31.0); MEAN CORPUSCULAR HGB CONC 31.6 g/dL (32.0-36.0); MEAN CORPUSCULAR VOLUME 77.6 fL (80.0-94.0); MEAN PLATELET VOLUME 10.2 fL (7.4-11.4); MONOCYTES # (AUTO) 0.4 10^3/uL (0.0-1.0); MONOCYTES % (AUTO) 7.7 %; NEUTROPHILS # (AUTO) 2.6 10^3/uL (1.5-6.6); NEUTROPHILS % (AUTO) 53.7 %; PLT - PLATELET COUNT 265 10^3/uL (130-450); RED BLOOD COUNT 5.05 10^6/uL (4.70-6.10); RED CELL DISTRIBUTION WIDTH 17.4 % (12.0-15.0); WHITE BLOOD COUNT 4.9 x10^3/uL (4.8-10.8)
[2020-01-25] MEDS ORDERED: ONDANSETRON 4 MG/2 ML VIAL IVP STA (08:14)
[2020-01-25] MEDS ORDERED: KETOROLAC 30 MG/ML VIAL IVP STA (08:14)
[2020-01-25] MEDS ORDERED: MORPHINE 10 MG/ML VIAL IVP STA (08:14)
[2020-01-25] MEDS ORDERED: LIDOCAINE-MPF 2% 5 ML in SODIUM CHLORIDE 0.9% 50 ML IV STA (08:15)
[2020-01-25] MEDS ORDERED: HYDROmorphone 1 MG/ML CARPUJECT IVP STA (09:06)
[2020-01-25] MEDS ORDERED: DEXAMETHASONE 10 MG/ML VIAL IVP STA (09:06)
--- NOTE | 2020-01-25 09:08 | CT Report ---
Reason: right flank and abd pain today Procedure Date: 01/25/2020 Accession Number: [id number] / [id number] Procedure: CT - Abdomen/Pelvis WO CPT Code: Final Report FULL RESULT: EXAM: CT ABDOMEN AND PELVIS (CT KUB) EXAM DATE: 01/25/2020 08:48 AM. CLINICAL HISTORY: Right flank and abd pain today. COMPARISONS: IVP 03/03/2019 3:53 PM. TECHNIQUE: Routine axial helical CT imaging was performed through the abdomen and pelvis without IV contrast. Reconstructions: Coronal and sagittal. In accordance with CT protocol optimization, one or more of the following dose reduction techniques were utilized for this exam: automated exposure control, adjustment of mA and/or KV based on patient size, or use of iterative reconstructive technique. FINDINGS: Lung Bases: Unremarkable. Right Kidney/Ureter: There is a 4 mm calculus in the proximal right ureter at the L4 level. This calculus is visible on the guest specialist. This calculus previously was in the mid to upper right kidney. There are no residual or new intrarenal calculi. There is new minimal right hydronephrosis and proximal hydroureter with minimal asymmetric perinephric and proximal periureteral fat stranding. Left Kidney/Ureter: No stones, hydronephrosis, or hydroureter. No perinephric fat stranding. Other Solid Organs: Noncontrast images of the solid organs are grossly unremarkable. Gallbladder/Bile Ducts: Unremarkable. Peritoneal Cavity: Unopacified stomach and small bowel are nondistended. The appendix is normal. There is a minimal amount of formed stool in the colon. There is mild proximal sigmoid colon diverticulosis. There is no focal pericolonic fat stranding. There is no lymphadenopathy, ascites, or pneumoperitoneum. Pelvic Organs: Small volume bladder without stones. Mild dystrophic calcification in the normal sized prostate gland. Seminal vesicles are unremarkable. Vasculature: Retroaortic left renal vein. Otherwise unremarkable. Other: Body wall unremarkable. Bones unremarkable. IMPRESSION: 1. Mildly obstructing 4 mm proximal right ureteral calculus at the L4 level. 2. No other uroliths. RADIA
[2020-01-25 09:37] VITALS: BP 130/75
== END 2020-01-25 09:38 | disposition home or self-care (01) ==
LOC: ED 07:23
DX: N13.2 Hydronephrosis with renal and ureteral calculous obstruction (principal)
CPT/HCPCS: 36415; 74176; 80053; 81001; 83690; 85025; 96374; 96375; 99284; 99285; J1170; J7040; 81003; 87086

== ENCOUNTER 2023-12-30 11:05 | Emergency (ER) | payer OTHER ==
--- NOTE | 2023-12-30 11:39 | ED Physician Documentation ---
History of Present Illness - Stated complaint Stated Complaint: LT LEG NUMB,CHEST ACHES - Chief complaint Chief Complaint: Ext Problem - Additonal information Additional information: 58-year-old male with hypertension presents emergency department for multiple concerns. Patient says that he is on Augmentin right now for sinus infection. Today when he was having a bowel movement he noticed that his left leg felt decrease sensation in comparison to his right leg. Patient also says that he is been having multiple episodes of diarrhea while having a bowel movement he noticed that his stool was very dark almost black. He also is endorsing a new right flank pain has a history of renal calculi and is concerned possibly about kidney stone. He also says that he has chronic heart palpitations due to his PTSD and anxiety but his heart palpitations feel the same as they always do. He denies any chest pain any shortness of breath. He has no unilateral leg swelling. PD PAST MEDICAL HISTORY - Past Medical History Cardiovascular: None Respiratory: None Neuro: None Endocrine/Autoimmune: None GI: None : None HEENT: None Psych: Anxiety, Post traumatic stress disorder Musculoskeletal: None Derm: None - Past Surgical History Past Surgical History: No - Present Medications Home Medications: Ambulatory Orders Medication Instructions Recorded Confirmed Losartan [Cozaar] 25 mg PO DAILY 12/30/23 12/30/23 Pantoprazole [Protonix] 40 mg PO BID #30 tablet 12/30/23 - Allergies Allergies/Adverse Reactions: Allergies Allergy/AdvReac Type Severity Reaction Status Date / Time No Known Drug Allergies Allergy Verified 12/30/23 11:32 - Social History Does the pt smoke?: No Smoking Status: Never smoker Does the pt drink ETOH?: No Does the pt have substance abuse?: No - Immunizations Immunizations are current?: Yes PD ED PE NORMAL - Vitals Vital signs reviewed: Yes - General General: Alert and oriented X 3, No acute distress, Well developed/nourished - HEENT HEENT: Atraumatic - Cardiac Cardiac: RRR, No gallop - Respiratory Respiratory: No respiratory distress - Abdomen Abdomen: Normal bowel sounds, Soft, Non tender - Back Back: No CVA TTP - Derm Derm: Normal color, Warm and dry, No rash - Extremities Extremities: No edema, No calf tenderness / cord - Neuro Neuro: Alert and oriented X 3, presser automatic 2-12 intact, No motor deficit, Normal speech Eye Opening: Spontaneous Motor: Obeys Commands Verbal: Oriented GCS Score: 15 - Psych Psych: Normal mood Results - Vitals Vitals: Vital Signs - 24 hr 12/30/23 12/30/23 12/30/23 11:25 13:52 14:36 Temperature 36.7 C Heart Rate 84 83 Respiratory 17 16 16 Rate Blood Pressure 161/89 H 145/93 H O2 Saturation 97 99 Oxygen O2 Source Room air - Labs Labs: Microbiology 12/30/23 12:57 Occult Blood - Final Stool Laboratory Tests 12/30/23 12/30/23 12/30/23 12:08 12:08 12:57 WBC 4.6 L RBC 4.75 Hgb 13.0 L Hct 40.7 L MCV 85.7 MCH 27.4 MCHC 31.9 L RDW 15.2 H Plt Count 273 MPV 9.2 Neut # (Auto) 2.4 Lymph # (Auto) 1.5 Angelina # (Auto) 0.3 Eos # (Auto) 0.4 Baso # (Auto) 0.1 Absolute Nucleated RBC 0.00 Nucleated RBC % 0.0 Sodium 140 Potassium 3.8 Chloride 106 Carbon Dioxide 27 Anion Gap 7.0 BUN 11 Creatinine 1.0 Estimated GFR (MDRD) 76 L Glucose 91 Calcium 9.4 Total Bilirubin 0.4 AST 27 ALT 30 Alkaline Phosphatase 59 Total Protein 7.7 Albumin 4.3 Globulin 3.4 Albumin/Globulin Ratio 1.3 Lipase 20 Urine Color YELLOW Urine Clarity CLEAR Urine pH 5.5 Ur Specific [place] 1.020 Urine Protein NEGATIVE Urine Glucose (UA) NEGATIVE Urine Ketones NEGATIVE Urine Occult Blood TRACE-INTA Urine Nitrite NEGATIVE Urine Bilirubin NEGATIVE Urine Urobilinogen 0.2 (NORMAL) Ur Leukocyte Esterase NEGATIVE Ur Microscopic Review NOT INDICATED Urine Culture Comments NOT INDICATED - Rads (name of study) CT abdomen pelvis with contrast Relevant Findings:: Final report received, EMP independent interpretation of test, Other (No acute intra-abdominal abnormalities, possible esophagitis) PD Medical Decision Making - ED course ED course: 58-year-old male presents emergency department with multiple complaints. Originally his concern of left leg numbness and tingling. He says that he has chronic ongoing back issues so I believe that the tingling sensation he is experiencing is probably due to a pinched nerve. He has no weakness no fevers or chills he is able to ambulate without any difficulty. He is able to keep an eye on this do some lower back range of motion stretches and exercises to see if this helps at all if not to follow-up with primary care provider about this outpatient. I am not concerned of DVT discussed great strong pulses no unilateral leg swelling or tenderness. Patient is also concerned that he is having hematochezia. I did see his bowel movement he does appear to have kirt blood with some darker bowel movement in the toilet hat. Guaiac is obviously positive. His hemoglobin is 13.0 when I look at his previous labs this is actually improved in comparison to what it normally is. His vitals are very stable he is not hemodynamically unstable. Patient says that he has chronic hemorrhoid issues he does not usually do anything for them because he says he is unsure what there is to do for them because no matter what they always bleed. He had a colonoscopy 2 years ago with [facility] so he is already established care with them. Because of this I feel that he is safe for discharge at this time is told to follow-up with [facility] clinic for possible outpatient colonoscopy and to follow-up with primary care provider over the next couple days to trend his hemoglobin and hematocrit. He was given 40 mg IV Protonix here in the emergency department and a prescription of Protonix outpatient that he is aware he is will take twice a day for the next 7 days and then transition to once a day until he can follow-up with GI. He is given very strict return precautions. Patient was told how to manage hemorrhoids with steroid suppositories that he can purchase [id number]. He denies any chest pain or shortness of breath no nausea or vomiting. He is told to complete his course of Augmentin for his sinus infection as he does feel like he is still having signs and symptoms of sinusitis. At this time patient is safe for discharge all questions answered very strict return precautions given. Departure - Departure Disposition: 01 Home, Self Care Clinical Impression: Bright red blood per rectum, Hematochezia Anemia Qualifiers: Anemia type: unspecified type Qualified Code(s): D64.9 - Anemia, unspecified Instructions: ED Hematochezia Stable Prescriptions: Pantoprazole [Protonix] 40 mg PO BID #30 tablet Comments: Thank you for trusting us with your care. As we discussed your labs are all very reassuring. I would follow-up with your primary care provider in a few days to repeat your hemoglobin and hematocrit to make sure that it is not down- trending. Your hemoglobin today was 13.0 and your hematocrit is 40.7. There is a possibility with the dark bowel movements that you are having that you could be due to an upper GI bleed although at this time you are very stable and this can be followed up outpatient. I would recommend calling your GI provider at [facility] today to get an appointment to have a soon as possible with them know that you are having dark black bowel movements as well as bright red per rectum. Let them know that you have already been seen in the emergency department at this point in time we feel that this is safe to follow-up with your GI provider outpatient. We have also started you on a medication called pantoprazole also known as Protonix this can help with people who are having esophagitis and GI bleeds he will take this twice a day for the next 7 days unless GI recommends otherwise and then after that you will take it once a day. I have sent this prescription to our local pharmacy across the street from the hospital. I pick this up on your way home. Please come back to the emergency department for starting to notice any worsening dizziness, worsening bleeding, or any other concerning symptoms. As we discussed it also suggest getting some sort of [id number] steroid suppository for hemorrhoids Preparation H does have a steroids that you can use rectally to help with your hemorrhoids and inflammation. Below are the CT scan reads. IMPRESSION: No acute abdominopelvic abnormality identified. Partially visualized mild distal esophageal wall thickening, possibly esophagitis, consider endoscopic correlation if clinically indicated. Forms: PCP List Discharge Date/Time: 12/30/23 14:36
[2023-12-30 12:13] LABS: BASOPHILS # (AUTO) 0.1 10^3/uL (0.0-0.1); BASOPHILS % (AUTO) 2.4 %; EOSINOPHILS # (AUTO) 0.4 10^3/uL (0.0-0.7); HCT - HEMATOCRIT 40.7 % (42.0-52.0); LYMPHOCYTES # (AUTO) 1.5 10^3/uL (1.5-3.5); LYMPHOCYTES % (AUTO) 31.7 %; MEAN CORPUSCULAR HEMOGLOBIN 27.4 pg (27.0-31.0); MEAN CORPUSCULAR HGB CONC 31.9 g/dL (32.0-36.0); MEAN CORPUSCULAR VOLUME 85.7 fL (80.0-94.0); MEAN PLATELET VOLUME 9.2 fL (7.4-11.4); MONOCYTES # (AUTO) 0.3 10^3/uL (0.0-1.0); MONOCYTES % (AUTO) 6.3 %; NEUTROPHILS # (AUTO) 2.4 10^3/uL (1.5-6.6); NEUTROPHILS % (AUTO) 51.4 %; PLT - PLATELET COUNT 273 10^3/uL (130-450); RED BLOOD COUNT 4.75 10^6/uL (4.70-6.10); RED CELL DISTRIBUTION WIDTH 15.2 % (12.0-15.0); WHITE BLOOD COUNT 4.6 x10^3/uL (4.8-10.8)
[2023-12-30 12:24] LABS: ALBUMIN 4.3 g/dL (3.2-5.5); BILIRUBIN,TOTAL 0.4 mg/dL (0.2-1.0); CALCIUM 9.4 mg/dL (8.5-10.3); POTASSIUM 3.8 mmol/L (3.5-4.5)
[2023-12-30 12:28] LABS: ALBUMIN/GLOBULIN RATIO 1.3 (1.0-2.2); TOTAL PROTEIN 7.7 g/dL (6.4-8.9)
[2023-12-30] MEDS ORDERED: iohexoL-300 100 ML VIAL ONE (13:09)
[2023-12-30 13:17] LABS: BILIRUBIN,URINE NEGATIVE (NEGATIVE); GLUCOSE, URINE (UA) NEGATIVE (NEGATIVE); KETONES,URINE (UA) NEGATIVE (NEGATIVE); LEUKOCYTE ESTERASE, URINE NEGATIVE (NEGATIVE); NITRITE,URINE NEGATIVE (NEGATIVE); OCCULT BLOOD,URINE TRACE-INTA (NEGATIVE); PH,URINE 5.5 PH (5.0-7.5); PROTEIN,URINE NEGATIVE (NEGATIVE); UROBILINOGEN,URINE 0.2 (NORMAL) E.U./dL (NORMAL)
[2023-12-30 13:19] LABS: CLARITY,URINE CLEAR (CLEAR)
--- NOTE | 2023-12-30 13:55 | CT Report ---
PROCEDURE: Abdomen/Pelvis W INDICATIONS: abdominal pain CONTRAST: Omn 300 100ml TECHNIQUE: After the administration of intravenous contrast, a CT scan of the abdomen and pelvis was performed. Images were recorded and evaluated at appropriate window settings. Reformats: coronal and sagittal. F or radiation dose reduction, the following was used: automated exposure control, adjustment of mA and /or kV according to patient size. COMPARISON: 01/25/2020 FINDINGS: Image quality: Diagnostic Lower chest: Unremarkable mild nonspecific distal esophageal wall thickening partially seen. Liver: Unremarkable Gallbladder and biliary system: Unremarkable, nondilated Pancreas: No ductal dilation Spleen: Nonenlarged Adrenals: No discrete nodule Kidneys: Left renal cysts. No solid mass. Subcentimeter lesions are too small to characterize, probab ly also cysts. No hydronephrosis. Vessels and lymph nodes: The main portal vein appears patent. Circumaortic left renal vein. No pathol ogic lymph nodes by size criteria. Bowel and peritoneum: No evidence of small bowel obstruction. No significant inflammatory changes. Ap pendix is nondilated. No pathologic ascites or drainable abscess. Colonic diverticula are present. Body wall: Unremarkable. Pelvis: Bladder is unremarkable. Heterogeneous prostate with calcifications. Bones: Degenerative changes. No acute or suspicious osseous finding. IMPRESSION: No acute abdominopelvic abnormality identified. Partially visualized mild distal esophageal wall thickening, possibly esophagitis, consider endoscopi c correlation if clinically indicated. Other findings as above. Reviewed by: Wai Goode MD on 12/30/2023 1:54 PM PST Approved by: Wai Goode MD on 12/30/2023 1:54 PM PST Station ID: [id number]
[2023-12-30 14:07] VITALS: BP 145/93; O2SAT 99
[2023-12-30] MEDS: PANTOPRAZOLE 40 MG VIAL IVP STA (14:28)
[2023-12-30] MEDS: iohexoL-300 100 ML VIAL IVP ONE (16:24)
== END 2023-12-30 14:36 | disposition home or self-care (01) ==
LOC: ED 11:05
DX: K92.1 Melena (principal); D64.9 Anemia, unspecified; I10 Essential (primary) hypertension
CPT/HCPCS: 36415; 74177; 80053; 81003; 82272; 83690; 85025; 96374; 99284; Q9967; 81001; 87086

== ENCOUNTER 2024-06-09 09:59 | Outpatient (CLI) | payer OTHER ==
--- NOTE | 2024-06-09 19:30 | MRI Report ---
PROCEDURE: Brain WO INDICATIONS: HEADACHES TECHNIQUE: Noncontrast axial T1 spin echo, axial T2 fast spin echo, sagittal and axial FLAIR, coronal T2 fast sp in echo, axial gradient echo, axial diffusion and ADC through the brain. COMPARISON: None. FINDINGS: Image quality: Excellent. CSF Spaces: Basal cisterns are patent. No extra-axial fluid collections. Ventricles are normal in size and shape. Brain: No intracranial masses or hemorrhage. Soto/white matter interface is normal. Mild age-relate d global volume loss and chronic microvascular ischemic changes. Brainstem appears normal. Diffusio n-weighted images demonstrate no acute ischemic insult. No chronic ischemic insults. Normal intrava scular flow voids are present. Skull and face: Calvarium has normal marrow signal. Orbits appear normal. Sinuses: Moderate mucosal thickening of the left sphenoid sinus with partial opacification. Mild muco roshni thickening of the right sphenoid sinus. Other paranasal sinuses are clear. Mastoids are clear. IMPRESSION: 1.No cause for patient's symptoms is identified. No acute intracranial abnormalities. 2.Mild age-related global volume loss and chronic microvascular ischemic changes. 3.Moderate left sphenoid sinusitis. Reviewed by: Quinn Shah MD on 06/09/2024 7:29 PM PDT Approved by: Quinn Shah MD on 06/09/2024 7:29 PM PDT Station ID: [id number]
== END 2024-06-09 10:00 | disposition home or self-care (01) ==
LOC: DI 09:59
PROVIDERS: ATTEND Family Medicine
DX: R51.9 Headache, unspecified (principal); G31.89 Other specified degenerative diseases of nervous system; I67.82 Cerebral ischemia; J32.3 Chronic sphenoidal sinusitis